=== PATIENT | female | born 1990 ===

== ENCOUNTER 2025-04-05 11:09 | Outpatient (AMB) | payer MEDICAID, SELFPAY ==
--- NOTE | 2025-04-05 11:05 | GYNCLNT_ITS ---
Allergies/Home Meds Allergies & Medications Allergies NKA* Allergy (Uncoded 04/05/25 11:06) Medication Reconciliation No Known Home Medications 04/05/25 [History Confirmed 04/05/25] Intake Visit Data Collection New Patient or Established: Established Patient (seen at [facility] within 3 years) Reason for Visit:: Control Consult Consent obtained for Telemed Visit: Yes Seen by Clinical Staff ONLY (RN/MA): No Chip Bin Operator Required: No Do You Feel Safe at Home: Yes Authorities Contacted: N/A PCP or OBGYN visit in last 3 months: Yes Are you currently on any form of Control: Yes Pain Present Currently: No Pain Scale Used: Martinez-Diego/Numerical Pain scale:: 0 Smoking Status Smoking Status: Never smoker For Telemed visit only Telemed Video/Phone Visit: Yes Verbal consent obtained for Telemed visit?: Yes Assessment Director history Assessment Director History Menstrual regularity: irregular Flow: normal Monthly: No Age at menarche: 11 Currently sexually active: Yes Questionnaires Covid-19 Vaccine Questionnaire Has patient been vacinated for Covid-19 Have you been vacinated for Covid-19: No PHQ-9 PHQ-2 Over the last 2 weeks, how often have you been bothered by any of the following problems? 1. Little interest or pleasure in doing things: not at all 2. Feeling down, depressed, or hopeless: not at all Total score: 0 PHQ-9 3. Trouble falling or staying asleep, or sleeping too much: Not at all 4. Feeling tired or having little energy: Not at all 5. Poor appetite or overeating: Not at all 6. Feeling bad about yourself - or that you are a failure or have let yourself or your family down: Not at all 7. Trouble concentrating on things, such as reading the newspaper or watching television: Not at all 8. Moving or speaking so slowly that other people could have noticed? - Or the opposite - being so fidgety or restless that you have been moving around a lot more than usual: not at all 9. Thoughts that you would be better off or of hurting yourself in some way: Not at all Total score: 0 Source: Developed by Drs. Edward Urbina, Kitty Tinoco, Dung Guevara and colleagues, with an educational jack from [employer]. Depression screen completed yes Social History Tobacco History Smoking Status: Never smoker Domestic Abuse History Do You Feel Safe at Home: Yes Past Medical History Past Medical History Have you ever been diagnosed with any of the following: History of Present Illness HPI Narrative 34 yo for tele med nexplanon removl and consult. nexplanon x 3 year. happy with method,no ACHES,no side effect. spots occasional. no pMH,no social habit,no surgery. previous abnormal pap. 3 year ago, f/u pap was normal. no interval [employer] LEAD complaints Review of Systems Review of Systems Systems Reviewed: All systems reviewed, normal except as documented Exam General Limitations: no limitations General Appearance: alert, in no apparent distress, comfortable, cooperative, healthy appearing, well developed and well groomed Resp Respiratory exam: Present normal lung sounds bilaterally Card Cardiovascular exam: Present regular rate, normal rhythm and normal heart sounds Psych Psychiatric exam: Present normal affect and normal mood Assessment & Plan Diagnosis / Problem List (1) Encounter for surveillance of Nexplanon subdermal contraceptive: Status: Acute Plan Review nexplanon method and side effect. review nexplanon insert and removal. schedule for procedure. will do pap next visit Additional Plan Follow Up: 2 Weeks (nexplanon removal/insert and pap) Office Procedures OB Clinic LOC & Office Proc's Nursing/Assessment Patient Status: Established Patient OB Clinic Nursing Assessment: Medication Reconciliation and Update PMH in EMR OB Clinic Coordination of Care: Complex Care and Chronic Disease 1-5, Consent,records obtained, informed consent, Education Simp Pt/Fam and Staff clarify orders Established Patient Charge Established Patient Point Assignment: 70 Telehealth If patient is seen using Teleconference methods, complete New/Est section, but DO NOT han points only han the correct Telemed visit type Telemed Phone/Video with patient at home & Dr,PA,OIL WELL ENGINEER: Yes
== END 2025-04-05 11:25 | disposition home or self-care (01) ==
LOC: HODSOBC 11:09
PROVIDERS: Supervising Provider Advanced Practice Midwife; Visit Provider Advanced Practice Midwife
DX: Z30.017 Encounter for initial prescription of implantable subdermal contraceptive (principal)
CPT/HCPCS: 99212; G0463

== ENCOUNTER 2025-04-19 13:22 | Outpatient (AMB) | payer OTHER, SELFPAY ==
--- NOTE | 2025-04-19 14:03 | AMB.GYNCLNOT ---
Vital Signs 04/19/25 14:04 Weight 64.013 kg Weight Measurement Method Standing Scale BP 118/71 Blood Pressure Source Automatic Cuff Blood Pressure Location Left Upper Arm Position Sitting Respiration 18 Pulse 79 Pulse Source Monitor Temp 97.2 F Temp Source Oral Pulse Oximetry (%) 99 Oxygen Delivery Method Room Air Allergies/Home Meds Allergies & Medications Allergies NKA* Allergy (Uncoded 04/19/25 14:05) Intake Visit Data Collection New Patient or Established: Established Patient (seen at [facility] within 3 years) Reason for Visit:: NEXPLANON RMOVAL/ INSERTION Seen by Clinical Staff ONLY (RN/MA): No Lacquer Sizer Required: No Do You Feel Safe at Home: Yes Authorities Contacted: N/A PCP or OBGYN visit in last 3 months: Yes Hx Now: No Are you currently on any form of Control: No Pain Present Currently: No Pain Scale Used: Martinez-Diego/Numerical Pain scale:: 0 Smoking Status Smoking Status: Never smoker 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 1. Little interest or pleasure in doing things: not at all 2. Feeling down, depressed, or hopeless: not at all Total score: 0 PHQ-9 3. Trouble falling or staying asleep, or sleeping too much: Not at all 4. Feeling tired or having little energy: Not at all 5. Poor appetite or overeating: Not at all 6. Feeling bad about yourself - or that you are a failure or have let yourself or your family down: Not at all 7. Trouble concentrating on things, such as reading the newspaper or watching television: Not at all 8. Moving or speaking so slowly that other people could have noticed? - Or the opposite - being so fidgety or restless that you have been moving around a lot more than usual: not at all 9. Thoughts that you would be better off or of hurting yourself in some way: Not at all Total score: 0 If you checked off any problems, how difficult have these problems made it for you to do your work, take care of things at home, or get along with other people?: not difficult at all Source: Developed by Drs. Edward Urbina, Kitty Tinoco, Dung Guevara and colleagues, with an educational jack from [employer]. Depression screen completed yes Social History Living Situation History Marital Status: Lives With: Family Housing: House Tobacco History Smoking Status: Never smoker Second Hand Smoke Exposure: No Domestic Abuse History Do You Feel Safe at Home: Yes History of Present Illness HPI Narrative 34 yo for nexplanon insert and removal. nexplanon x 3 year. no ACHES. happy with method. This 4th time patient is getting a nexplanon insert. no menses. spotting x 2 week. no PMH,no social habit, no surgery. 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 Review of Systems Review of Systems Systems Reviewed: All systems reviewed, normal except as documented Exam General Limitations: no limitations General Appearance: alert, in no apparent distress, comfortable, cooperative, healthy appearing, well developed and well groomed Head Head exam: atraumatic, normocephalic and normal inspection Resp Respiratory exam: Present normal lung sounds bilaterally Card Cardiovascular exam: Present regular rate, normal rhythm and normal heart sounds Abdominal Abdominal exam: Present soft and normal bowel sounds Psych Psychiatric exam: Present normal affect and normal mood Office Procedures OB Clinic LOC & Office Proc's Nursing/Assessment Patient Status: Established Patient OB Clinic Nursing Assessment: Medication Reconciliation, Update PMH in EMR and Vital Signs OB Clinic Coordination of Care: Education Complex Pt/Fam, Consent,records obtained, informed consent, 4+ Authorizations needed, Results/Orders obtained and Staff clarify orders Established Patient Charge Established Patient Point Assignment: 95 Established Patient Point Charge: EP Level 3 (80-115) In Clinic Procedures Insertion of Control other NOT IUD's: Yes Removal of Control Implant other NOT IUD: Yes Assessment & Plan Diagnosis / Problem List (1) Nexplanon insertion: Status: Acute Plan consented for nexplanon insert and removal. review method and side effect, dry x 3 days, discuss wound care nad sign of infection. condom x 2 week. discussed procedure prior to start. time out was done Additional Plan Follow Up: 4 Weeks (wound check) ULTRASONIC TESTER: BC insert/removal Procedure Notes Consent obtained: yes-verbal, yes-written and risks discussed (reviewed side effect and effectiveness. time out performed. negative test. NKA, Consented for nexplanon removal and insertdone) Pre-op diagnosis general: nexplanon insert and removal Post-op diagnosis procedure note: Same IUD type inserted: Other (describe) (Nexplanon subdermal) IUD Lot and Exp: [id number]#: Expiration date: 05/27 Procedure Notes:: betadine prep of insert area. 3 cc lidocaine 1% at insert site. 1/8cm incision made and nexplanon capsule was removed with hemostat intact. small bleeding. stopped with pressure. new nexplanon capsule inserted with applicator. band aid place and pressure dressing applied
[2025-04-19 14:04] VITALS: BP 118/71; PULSE 79; RESP 18; TEMP 36.2; O2SAT 99
== END 2025-04-19 14:37 | disposition home or self-care (01) ==
LOC: HODSOBC 13:22
PROVIDERS: Supervising Provider Obstetrics & Gynecology; Visit Provider Advanced Practice Midwife
DX: Z30.46 Encounter for surveillance of implantable subdermal contraceptive (principal)
CPT/HCPCS: 11983; 99213; 99214; J3490; J7301; G0463